=== PATIENT | male | born 1980 | race Hispanic/Latino ===

== ENCOUNTER 2018-07-10 12:28 | Emergency (ER) | payer OTHER, MEDICAID, SELFPAY ==
[2018-07-10 12:30] VITALS: BP 150/80; PULSE 90; RESP 14; TEMP 36.9; O2SAT 98
--- NOTE | 2018-07-10 13:20 | ED.ALLEREA ---
HPI - Allergic Reaction General Chief complaint: Allergic Reaction Stated complaint: states swelling in the throat Time Seen by Provider: 07/10/18 13:11 Source: patient Mode of arrival: ambulatory Limitations: no limitations History of Present Illness HPI narrative: 38-year-old male presents with chief complaint of some swelling in his throat that is largely resolved since this morning. He ate some crab last night questions whether not it was the trigger, however he eats crab regularly. He denies any trouble breathing, swallowing, or rash. MD complaint: allergic reaction Onset (ago): hour(s) Symptoms: rash Severity: mild Treatment prior to arrival: none Previous Allergic Reaction History: none Related Data Home Medications Medication Instructions Recorded Confirmed No Known Home Medications 07/10/18 07/10/18 Allergies Allergy/AdvReac Type Severity Reaction Status Date / Time No Known Drug Allergies Allergy Verified 07/10/18 13:27 Review of Systems Review of Systems All systems reviewed & are unremarkable except as noted in HPI and below Constitutional Denies chills, Denies fever(s), Denies lethargy and Denies weakness Eyes Denies change in vision, Denies eye discharge, Denies irritation and Denies loss of vision ENT Ears, Nose, Mouth, and Throat: Denies change in voice, Denies neck pain and Denies sore throat Cardiovascular Denies chest pain, Denies irregular heart rhythm, Denies lightheadedness, Denies palpitations, Denies dyspnea, Denies dyspnea on exertion and Denies orthopnea Respiratory Denies cough, Denies dyspnea, Denies dyspnea on exertion and Denies wheezing Gastrointestinal Gastrointestinal: Denies abdominal pain, Denies change in bowel habits, Denies diarrhea, Denies nausea and Denies vomiting Genitourinary Denies hematuria, Denies flank pain, Denies urinary incontinence and Denies urinary urgency Musculoskeletal Denies neck pain Integumentary/Breasts Denies pruritus, Denies erythema, Denies rash and Denies wounds Neurologic Denies confusion, Denies loss of vision and Denies weakness Psychiatric Denies anxiety, Denies confusion, Denies depression, Denies homicidal ideation and Denies suicidal ideation Endocrine Denies palpitations Hematologic/Lymphatic Denies easy bruising Allergic/Immunologic Denies wheezing Exam Narrative Exam Narrative: GEN: AOx3 and in mild distress EYES: Pupils are equal, round, and reactive to light and accommodation. Extraoccular muscles are intact bilaterally. There is no subconjunctival hemorrhage or exudate. ENT: minimal swelling of uvula. No tongue, lip swelling. AIrway patent CHEST: Lungs are clear to auscultation bilaterally and free of wheezes, rales, or rhonchi. Heart rate is regular rhythm, there are no murmurs, clicks, rubs, or gallops. There is no chest wall tenderness. ABD: Abdomen is soft and nontender. There is no guarding or rebound. Bowel sounds are normal in all 4 quadrants. There is no mass or organomegaly. EXT: Full painless ROM of all extremities with no loss of sensation or strength. SKIN: Warm, pink, and dry. No erythema or rash Initial Vital Signs Initial Vital Signs: Vital Signs Temperature 98.4 F 07/10/18 12:30 Pulse Rate 90 07/10/18 12:30 Respiratory Rate 14 07/10/18 12:30 Blood Pressure 150/80 H 07/10/18 12:30 Pulse Oximetry 98 07/10/18 12:30 Course Orders Ordered: Discontinued Medications Dexamethasone 20 mg/ Sodium (Chloride) 10 mls @ 40 mls/hr IV NOW ONE Stop: 07/10/18 13:20 Last Infusion: 07/10/18 13:26 Dose: 0 mls/hr Admin: 07/10/18 13:25 Dose: 40 mls/hr Vital Signs - 8 hr 07/10/18 12:30 07/10/18 13:58 Temperature 98.4 F 98.0 F Pulse Rate 90 83 Respiratory Rate 14 18 Blood Pressure 150/80 H Blood Pressure [Left Arm] 137/83 H Pulse Oximetry 98 99 Discharge Plan Departure Patient Disposition: Home, Self-Care Clinical Impression: Uvulitis Discharge Date/Time: 07/10/18 14:00 Interventions: ED Discharge Assessment Last Done: 07/10/18 14:00 Instructions: DI for Uvulitis Activity Restrictions/Additional Instructions: *You have been diagnosed with [ uvulitis, possible food allergy ] *What to do: *Take medications as directed: [id number] Benadryl and Pepcid as directed *Follow up with your primary care provider in 2-3 days, call for an appointment. Let them know you were seen in the Emergency Department and that we ask that you be seen in follow up *Return to ER if you should have any new, worsening or concerning symptoms Prescriptions: No Action No Known Home Medications RF: 0
[2018-07-10] MEDS: DEXAMETHASONE IV (13:25)
[2018-07-10] MEDS: SODIUM CHLORIDE 0.9% IV (13:25)
[2018-07-10 13:58] VITALS: BP 137/83; PULSE 83; RESP 18; TEMP 36.7; O2SAT 99
== END 2018-07-10 14:00 | disposition home or self-care (01) ==
PROVIDERS: Emergency Provider Emergency Medicine
DX: K12.2 Cellulitis and abscess of mouth (principal)
CPT/HCPCS: 99283; 99284; J1100

== ENCOUNTER 2021-04-15 01:37 | Emergency (ER) | payer OTHER, MEDICAID, SELFPAY ==
[2021-04-15] VITALS (7 sets, daily range): BP systolic 182–207; BP diastolic 98–136; PULSE 98–111; RESP 21–32; TEMP 36.8; O2SAT 95–99; BMI 42.0
--- NOTE | 2021-04-15 01:46 | ED_ITS ---
HPI - General Adult General Chief complaint: Hypertension Stated complaint: BP is high 197/121 Time Seen by Provider: 04/15/21 01:46 History of Present Illness HPI narrative: 41-year-old gentleman with history of hypertension and methamphetamine use presents after checking blood pressure tonight simply because the blood pressure cuff was available and noting that his blood pressure was significantly elevated. He notes that over the past number of months it has consistently been higher than 200 systolic leak. He has not been on blood pressure medications for number of years and does not currently have a physician. He states he has occasional headaches but also has history of suad adonis. He describes no chest pain, orthopnea, exertional dyspnea. He notes that he has gained almost 60 lb over the last year. He also notes that he continues to use methamphetamine fairly regularly. He denies nausea, vomiting, abdominal pain, diarrhea, change to bowel or bladder habits, lower extremity edema Related Data Previous Rx's Medication Instructions Recorded metoprolol succinate 50 mg PO DAILY #30 tab 04/15/21 Allergies Allergy/AdvReac Type Severity Reaction Status Date / Time No Known Drug Allergies Allergy Verified 07/10/18 13:27 Review of Systems Review of Systems Narrative: Remainder of complete review of systems is otherwise unremarkable except for that included in the HPI. Patient History Medical History Hypertension Methamphetamine use Obesity Social History Smoking Status: Current every day smoker Exam Narrative Exam Narrative: General: Obese, in no acute distress. Able to give a complete and coherent history. Well-nourished well-developed HEENT: Moist mucous membranes, normal sclera with reactive pupils, Neck: No JVD, supple Respiratory: Lungs are clear to auscultation, no wheezing no rales no rhonchi. Full and symmetrical air movement Cardiac: Mild tachycardia but otherwise Regular rate and rhythm no murmurs no bruits Abdomen: Soft, nontender, good bowel tones, no flank pain Skin: Warm and dry, no rashes Neurologic: Grossly neurologically intact with no obvious asymmetries or abnormalities Extremities: No trauma, well perfused, 1+ bilateral edema Psych: Cooperative, appropriate insight and affect Initial Vital Signs Initial Vital Signs: Vital Signs Pulse Rate 108 H 04/15/21 01:43 Respiratory Rate 21 04/15/21 01:43 Pulse Oximetry 99 04/15/21 01:43 Course Orders Ordered: ED Orders 04/15/21 01:50 Complete Blood Count AUTO DIFF Stat Comprehensive Metabolic Panel Stat 04/15/21 02:05 XR chest 1V Stat 04/15/21 02:59 Hemoglobin A1C% w Est Avg Glu Stat Discontinued Medications Metoprolol Succinate (Metoprolol Er 50 Mg Tablet) 50 mg PO NOW ONE Stop: 04/15/21 02:16 Last Admin: 04/15/21 02:26 Dose: 50 mg Documented by: GAYATHRI Vital Signs Vital signs: Vital Signs - 8 hr 04/15/21 01:43 04/15/21 01:45 04/15/21 02:00 Temperature 98.3 F Pulse Rate 108 H 111 H 98 H Respiratory Rate 21 22 24 Blood Pressure 207/136 H Pulse Oximetry 99 98 97 04/15/21 02:01 04/15/21 02:26 04/15/21 02:30 Temperature Pulse Rate 99 H 101 H 100 H Respiratory Rate 26 H 32 H Blood Pressure 182/98 H 189/98 H 185/108 H Pulse Oximetry 97 95 04/15/21 03:20 Temperature Pulse Rate Respiratory Rate Blood Pressure 185/108 H Pulse Oximetry Medical Decision Making Medical Records Medical records reviewed: Yes I reviewed the patient's medical records. Lab Data Lab results reviewed: Yes I reviewed the patient's lab results. Result diagrams: 04/15/21 01:50 04/15/21 01:50 Labs: Lab Results 04/15/21 04/15/21 Range/Units 01:50 01:50 WBC 14.5 H (4.5-11.0) X10^3/uL RBC 5.82 (4.5-5.9) X10^6/uL Hgb 14.0 (13.5-17.5) g/dL Hct 42.3 (41-53) % MCV 72.7 L (80-100) fL MCH 24.1 L (26-34) PG MCHC 33.1 (30-36) % RDW 13.9 (11.6-14.8) % Plt Count 280 (150-400) X10^3/uL Neut % (Auto) 58.0 (50-75) % Lymph % (Auto) 29.1 (25-40) % [place] % (Auto) 8.9 (3-14) % Eos % (Auto) 3.3 (2-4) % Baso % (Auto) 0.7 (0-2) % Neut # (Auto) 8400 H (6152-3344) /uL Lymph # (Auto) 4200 (7915-8518) /uL [place] # (Auto) 1300 H (0-900) /uL Eos # (Auto) 500 H (0-450) /uL Baso # (Auto) 100 (0-100) /uL Sodium 138 (137-145) mmol/L Potassium 3.5 (3.4-5.1) mmol/L Chloride 102 (98-107) mmol/L Carbon Dioxide 29 (22-32) mmol/L BUN 19 (9-20) mg/dL Creatinine 0.88 (0.66-1.25) mg/dL Estimated GFR > 60.0 (>60) mL/min BUN/Creatinine Ratio 21.6 (6-22) Glucose 213 H (70-100) mg/dL Calcium 9.4 (8.4-10.2) mg/dL Total Bilirubin 0.3 (0.2-1.3) mg/dL AST 38 (17-59) IU/L ALT 42 (<50) IU/L Alkaline Phosphatase 131 H (38-126) U/L Total Protein 7.1 (6.3-8.2) g/dL Albumin 4.1 (3.5-5.0) g/dL Globulin 3.0 (1.7-4.1) g/dL Albumin/Globulin Ratio 1.4 (1.0-2.8) Imaging Data Chest x-ray: Attestation: I personally reviewed and interpreted this imaging study as follows: My Impression: Mild cardiomegaly but no pulmonary infiltrates or interstitial edema. ECG Data Attestation: I personally reviewed and interpreted this ECG as follows: Interpretation: Sinus rhythm at a rate of 98 Normal axis, normal intervals No acute ischemic changes MDM Narrative Medical decision making narrative: 41-year-old gentleman presents with concerns for high blood pressure. He has been on both lisinopril and metoprolol in the past. Has multiple risk factors including continued methamphetamine use and 60 lb weight increase, sedentary lifestyle and he stopped all of his medications. He has not seen a doctor in a number of years. Elevated blood sugar today also suggests a diagnosis of diabetes that has not yet been officially made. At this point he is interested in starting blood pressure medications. This history of methamphetamine use and migraines I have chosen to restart his metoprolol. We have gone over lifestyle changes including stopping his methamphetamine and finding a primary care physician. Will also share the elevated blood sugar reading and concern for diabetes. At this point he has no sign of acute stroke, acute coronary syndrome no acute organ dysfunction and he is safe for home discharge Discharge Plan Departure Patient Disposition: Home Clinical Impression: Methamphetamine use Hypertension Qualifiers: Hypertension type: essential hypertension Qualified Code(s): I10 - Essential (primary) hypertension Obesity Qualifiers: Obesity type: due to excess calories Instructions: DI for High Blood Pressure Activity Restrictions/Additional Instructions: Thank you for coming into Your blood pressure is significantly elevated. There are multiple reasons that are contributing to this. Continuing to use methamphetamine will continue to destroy your heart and cause high blood pressure. The recent 60 lb that you have gained certainly adds to your blood pressure. Making sure that you are active makes of big difference in cont rolling blood pressure. Walking for as little as 20 minutes daily can sometimes be the difference between 1 blood pressure medication or 2. Workup in the ER is reassuring today. Your blood pressure does remain high but your blood work looks good and your EKG does not suggest heart attack and your chest x-ray is unremarkable. I am going to suggest that we restart your metoprolol at 50 mg once a day. Please keep track of your blood pressures, keeping a list will be helpful for your new doctor deciding which medications are working best for you. An additional finding on your blood work was an elevated blood sugar suggesting that you may be developing diabetes. This will need to be further evaluated by your new physician. You do need to reestablish care with a primary care physician. Please call our [facility] health natural resource economist at [phone] to find a doctor for you. Prescriptions: New metoprolol succinate 50 mg tablet extended release 24 hr 50 mg PO DAILY Qty: 30 RF: 3
--- NOTE | 2021-04-15 02:05 | DI.RAD.S_ITS ---
PROCEDURE: XR CHEST 1V INDICATIONS: hypertension TECHNIQUE: One view of the chest was acquired. COMPARISON: [facility], , CHEST 2 VIEW, 11/06/2015, 18:28. FINDINGS: Surgical changes and devices: None. Lungs and pleura: Lungs are clear. No pleural effusions or pneumothorax. Mediastinum: Mediastinal contours appear normal. Heart size is normal. Bones and chest wall: No suspicious bony lesions. Overlying soft tissues appear unremarkable. IMPRESSION: No acute cardiopulmonary disease process. Dictated by: Anna Ahumada MD, PhD on 04/15/2021 at 9:09 Approved by: Anna Ahumada MD, PhD on 04/15/2021 at 9:09
[2021-04-15 02:10] LABS: Add Manual Diff / Slide Review NO; Basophils Absolute Auto 100 /uL (0-100); Basophils Percent Auto 0.7 % (0-2); Eosinophils Absolute Auto 500 /uL (0-450); Eosinophils Percent Auto 3.3 % (2-4); Hematocrit 42.3 % (41-53); Lymphocytes Absolute Auto 4200 /uL (1100-4500); Lymphocytes Percent Auto 29.1 % (25-40); Mean Corpuscular HGB Conc 33.1 % (30-36); Mean Corpuscular Hemoglobin 24.1 PG (26-34); Mean Corpuscular Volume 72.7 fL (80-100); Monocytes Absolute Auto 1300 /uL (0-900); Monocytes Percent Auto 8.9 % (3-14); Neutrophils Absolute Auto 8400 /uL (1500-7000); Platelet Count 280 X10^3/uL (150-400); Red Blood Cell Count 5.82 X10^6/uL (4.5-5.9); Red Cell Distribution Width 13.9 % (11.6-14.8); White Blood Cell Count 14.5 X10^3/uL (4.5-11.0)
[2021-04-15 02:18] LABS: Alanine Aminotransferase 42 IU/L (<50); Albumin 4.1 g/dL (3.5-5.0); Albumin Globulin Ratio 1.4 (1.0-2.8); Alkaline Phosphatase 131 U/L (38-126); Aspartate Aminotransferase 38 IU/L (17-59); BUN Creatinine Ratio 21.6 (6-22); Bilirubin Total 0.3 mg/dL (0.2-1.3); Blood Urea Nitrogen 19 mg/dL (9-20); Calcium 9.4 mg/dL (8.4-10.2); Carbon Dioxide 29 mmol/L (22-32); Chloride 102 mmol/L (98-107); Estimated Glomerular Filt Rate > 60.0 mL/min (>60); Glucose 213 mg/dL (70-100); HEMOLYSIS < 15 (0-50); Potassium 3.5 mmol/L (3.4-5.1); Sodium 138 mmol/L (137-145); Total Protein 7.1 g/dL (6.3-8.2)
[2021-04-15] MEDS: METOPROLOL ER 50 MG TABLET PO (02:26)
[2021-04-15 04:21] LABS: Hemoglobin A1C% w Est Avg Glu 9.5 % (4.0-6.0)
== END 2021-04-15 03:22 | disposition home or self-care (01) ==
PROVIDERS: Emergency Provider Emergency Medicine
DX: I10 Essential (primary) hypertension (principal); F15.10 Other stimulant abuse, uncomplicated; E66.9 Obesity, unspecified; Z68.41 Body mass index [BMI] 40.0-44.9, adult
CPT/HCPCS: 36415; 71045; 80053; 83036; 85025; 93005; 93010; 99284

== ENCOUNTER → 2021-10-10 13:17 | Outpatient (CLI) | payer OTHER, MEDICAID, SELFPAY ==
[2021-10-10 15:43] LABS: COVID19 -Nasal RAPID Negative (Negative)
== END ==
PROVIDERS: Visit Provider Nurse Practitioner Family
DX: Z20.822 Contact with and (suspected) exposure to COVID-19 (principal)
CPT/HCPCS: 87635

== ENCOUNTER 2021-10-21 10:30 | Emergency (ER) | payer OTHER, MEDICAID, SELFPAY ==
[2021-10-21] VITALS (19 sets, daily range): BP systolic 146–205; BP diastolic 73–103; PULSE 78–90; RESP 18–25; TEMP 36.7; O2SAT 95–99; BMI 41.5
--- NOTE | 2021-10-21 10:56 | DI.RAD.S_ITS ---
PROCEDURE: XR CHEST 1V INDICATIONS: Possible stroke TECHNIQUE: One view of the chest was acquired. COMPARISON: [facility], , XR CHEST 1V, 04/15/2021, 2:26. FINDINGS: Surgical changes and devices: None. Lungs and pleura: Lungs are clear. No pleural effusions or pneumothorax. Mediastinum: Mediastinal contours appear normal. Heart size is normal. Bones and chest wall: No suspicious bony lesions. Overlying soft tissues appear unremarkable. IMPRESSION: No acute process. Dictated by: Annita Daniel M.D. on 10/21/2021 at 11:20 Approved by: Annita Daniel M.D. on 10/21/2021 at 11:20
--- NOTE | 2021-10-21 10:58 | ED_ITS ---
HPI - Neuro Symptoms/Deficit General Chief Complaint: Neuro Symptoms/Deficit Stated Complaint: Left arm partial loss of control x2days Time Seen by Provider: 10/21/21 10:47 Source: patient and family Mode of arrival: Ambulatory Limitations: no limitations History of Present Illness HPI Narrative: Patient is a 41-year-old male. History of high blood pressure. No prior diagnosis of diabetes. Does have a history of methamphetamine abuse according to the prior notes here in the emergency department. Is here for evaluation of coordination issues with his left arm, potentially slurring his words and left- sided facial droop and headache. Two days ago patient had a headache. He says was on the left back portion of his head. He took nothing for it. Things seemed to improve over the next couple hours. He did notice that he was having some coordination issues with his left arm but again did not think much of it. Did not greatly affect his daily activities. Yesterday he stated that he did not notice much issues. This morning he woke up. His fiancee who is at bedside stated that he seem to have some slurring of his words and some facial droop however this seems to have resolved. He then noticed today that he had trouble putting the jean in to his car using his left hand. He also reports that he potentially had some left leg weakness but that seems to have improved as well. On Anticoagulants: No Related Data Home Medications Medication Instructions Recorded Confirmed metoprolol succinate 50 mg 50 mg PO QAM 10/21/21 10/21/21 tablet,extended release 24 hr penicillin V potassium 500 mg 500 mg PO QID 10/21/21 10/21/21 tablet Allergies Allergy/AdvReac Type Severity Reaction Status Date / Time No Known Drug Allergies Allergy Verified 10/08/21 18:26 Review of Systems Constitutional Constitutional: Denies fever(s) and Reports headache(s) Eyes Eyes: Denies change in vision ENT Ears, Nose, Mouth, and Throat: Denies vertigo, Denies dizziness, Reports headache(s) and Denies disequilibrium Cardiovascular Cardiovascular: Denies chest pain and Denies dyspnea Respiratory Respiratory: Denies dyspnea Gastrointestinal Gastrointestinal: Denies abdominal pain, Denies nausea and Denies vomiting Genitourinary Genitourinary: Denies dysuria Musculoskeletal Musculoskeletal: Reports system reviewed and no additional complaints, except as documented and Reports as per HPI Integumentary/Breasts Skin/Breast: Reports system reviewed and no additional complaints, except as documented Neurologic Neurologic: Denies vertigo, Denies dizziness, Reports headache(s), Reports lack of coordination and Denies disequilibrium Psychiatric Psychiatric: Reports system reviewed and no additional complaints, except as documented Endocrine Endocrine: Reports system reviewed and no additional complaints, except as documented Hematologic/Lymphatic On Anticoagulants: No Allergic/Immunologic Allergic/Immunologic: Reports system reviewed and no additional complaints, except as documented Patient History Medical History Hypertension Methamphetamine use Obesity Social History Smoking Status: Current every day smoker Smoking Status: Current every day smoker alcohol intake frequency: holidays/special occasions only Substance Use Type: does not use and methamphetamine Exam Initial Vital Signs Initial Vital Signs: Vital Signs Temperature 98.1 F 10/21/21 10:35 Pulse Rate 86 10/21/21 10:35 Respiratory Rate 22 10/21/21 10:35 Blood Pressure 205/103 H 10/21/21 10:35 Pulse Oximetry 99 10/21/21 10:35 Const General: cooperative, comfortable, No acute distress and No ill appearing HENMT Head: normal to inspection and normocephalic Mouth: moist mucous membranes Eyes General: appearance normal, both eyes and all related structures Pupils: PERRL EOM: EOM intact bilaterally Chest Chest: normal inspection of the chest Resp Effort & Inspection: normal respiratory effort Auscultation: clear to auscultation bilaterally and no rhonchi Cardio Rate: regular rate Rhythm: regular rhythm GI Inspection: normal to inspection Palpation: soft Skin General: no rashes or lesions noted Neuro General: patient alert, patient awake, patient oriented x3 and moves all extremities Cranial Nerves: CN's II-XI intact bilaterally Cognition: normal cognition Speech: speech normal Gait: normal gait Motor: muscle tone normal throughout Sensory Exam: no sensory deficits noted Coordination: [id number] test abnormal Extrem General: normal to inspection and capillary refill normal Psych Appearance: grossly normal and well kempt Scores GCS [place] coma scale eye opening: Spontaneous [place] coma scale verbal response: Orientated [place] coma scale motor response: Obey commands Hedy coma scale total score: 15 NIH Stroke Scale Level of Conciousness: Alert, keenly responsive Ask month/age: Answers both questions correctly. Open/close eyes, close hand: Performs both tasks correctly Best gaze horizontal: Normal Visual penn: No visual loss Facial palsy: Normal symetrical movement Left arm drift: No drift for full 10 sec Right arm drift: No drift for full 10 sec Left leg drift: No drift for full 5 sec Right leg drift: No drift for full 5 sec Limb ataxia: Present in one limb Sensory on face/arms/legs: Normal, no sensory loss Best language: No aphasia, normal Dysarthria: Normal Extinction or inattention: No abnormality Total NIH Stroke scale score: 1 Course Orders Ordered: ED Orders 10/21/21 10:50 Complete Blood Count AUTO DIFF Stat Comprehensive Metabolic Panel Stat Ethanol (ETOH) Stat Hemoglobin A1C% w Est Avg Glu Stat Ketones (Beta-Hydroxybutyrate) Stat Lipase Stat Magnesium Stat Partial Thromboplastin Time Stat Phosphorous Stat Prothrombin Time INR Stat Troponin & CK Cardiac Panel Stat 10/21/21 10:56 XR chest 1V Stat EKG-12 Lead Stat 10/21/21 10:59 MR stroke Stat 10/21/21 11:13 COVID19 - ADMIT ([facility] swab/PCR) Stat 10/21/21 12:48 COVID19 -Nasal swab/Pre-Proc Stat Urinalysis and Microscopic Stat Urine Drug Screen, Rapid Stat Sodium Chloride (Normal Saline 0.9%) 1,000 mls @ 125 mls/hr IV CONT ALCON Last Admin: 10/21/21 11:07 Dose: 125 mls/hr Documented by: NIYA Nicardipine HCl 25 mg/ Sodium (Chloride) 250 mls @ 50 mls/hr IV TITRATE ALCON; Protocol Last Admin: 10/21/21 13:49 Dose: 5 mg/hr, 50 mls/hr Documented by: BERNABE Discontinued Medications Insulin Human Regular (Insulin Regular 100 Unit/Ml 3 Ml Vial) 10 unit IV NOW ONE Stop: 10/21/21 13:36 Last Admin: 10/21/21 13:49 Dose: 10 unit Documented by: BERNABE Cosigned by: ALTONONEFabiano Lorazepam (Lorazepam 2 Mg/Ml Inj) 1 mg IV NOW ONE Stop: 10/21/21 13:53 Last Admin: 10/21/21 14:01 Dose: 1 mg Documented by: Nicotine (Nicotine 21 Mg Patch) 21 mg TOP NOW ONE Stop: 10/21/21 13:34 Last Admin: 10/21/21 13:48 Dose: 21 mg Documented by: BERNABE Vital Signs Vital signs: Vital Signs - 8 hr 10/21/21 10:35 10/21/21 11:15 10/21/21 12:27 Temperature 98.1 F Pulse Rate 86 83 81 Respiratory Rate 22 22 18 Blood Pressure 205/103 H 160/96 H 167/92 H Pulse Oximetry 99 99 97 10/21/21 13:47 10/21/21 13:57 10/21/21 14:00 Temperature Pulse Rate 78 79 78 Respiratory Rate 24 24 23 Blood Pressure 166/102 H 171/99 H 163/91 H Pulse Oximetry 98 99 97 10/21/21 14:05 10/21/21 14:10 10/21/21 14:15 Temperature Pulse Rate 80 85 85 Respiratory Rate 22 20 24 Blood Pressure 155/85 H 156/81 H 157/80 H Pulse Oximetry 98 99 96 10/21/21 14:17 10/21/21 14:20 10/21/21 14:25 Temperature Pulse Rate 84 84 86 Respiratory Rate 24 24 24 Blood Pressure 154/73 H 159/79 H Pulse Oximetry 95 95 97 10/21/21 14:30 10/21/21 14:35 10/21/21 14:40 Temperature Pulse Rate 86 84 83 Respiratory Rate 25 H 22 22 Blood Pressure 146/76 H 152/79 H 153/81 H Pulse Oximetry 99 96 96 10/21/21 14:45 Temperature Pulse Rate 82 Respiratory Rate 23 Blood Pressure 160/82 H Pulse Oximetry 95 MDM - Neuro Symptoms/Deficit Lab Data Attestation: I reviewed the patient's lab results. Result diagrams: 10/21/21 10:50 10/21/21 10:50 Labs: Lab Results 10/21/21 10/21/21 10/21/21 Range/Units 10:50 10:50 10:50 WBC 11.9 H (4.5-11.0) X10^3/uL RBC 6.41 H (4.5-5.9) X10^6/uL Hgb 15.0 (13.5-17.5) g/dL Hct 45.5 (41-53) % MCV 70.9 L (80-100) fL MCH 23.4 L (26-34) PG MCHC 33.1 (30-36) % RDW 13.7 (11.6-14.8) % Plt Count 300 (150-400) X10^3/uL Neut % (Auto) 68.9 (50-75) % Lymph % (Auto) 21.6 L (25-40) % [place] % (Auto) 7.3 (3-14) % Eos % (Auto) 1.4 L (2-4) % Baso % (Auto) 0.8 (0-2) % Neut # (Auto) 8200 H (0676-7554) /uL Lymph # (Auto) 2600 (7781-2207) /uL [place] # (Auto) 900 (0-900) /uL Eos # (Auto) 200 (0-450) /uL Baso # (Auto) 100 (0-100) /uL PT 10.6 (10.1-12.7) SECONDS INR 1.0 (0.9-1.3) APTT 37 H (26.4-36.2) SECONDS Sodium 136 L (137-145) mmol/L Potassium 4.1 (3.4-5.1) mmol/L Chloride 98 (98-107) mmol/L Carbon Dioxide 31 (22-32) mmol/L BUN 14 (9-20) mg/dL Creatinine 0.78 (0.66-1.25) mg/dL Estimated GFR > 60.0 (>60) mL/min BUN/Creatinine Ratio 17.9 (6-22) Glucose 348 H (70-100) mg/dL Hemoglobin A1c (4.0-6.0) % Calcium 9.2 (8.4-10.2) mg/dL Phosphorus (2.5-4.5) mg/dL Magnesium (1.6-2.3) mg/dL Total Bilirubin 0.5 (0.2-1.3) mg/dL AST 30 (17-59) IU/L ALT 32 (<50) IU/L Alkaline Phosphatase 132 H (38-126) U/L Total Creatine Kinase 91 (55-170) U/L CK-MB (CK-2) TNP CK-MB (CK-2) Rel Index TNP Troponin I < 0.012 (0.01-0.034) ng/mL Total Protein 7.4 (6.3-8.2) g/dL Albumin 4.3 (3.5-5.0) g/dL Globulin 3.1 (1.7-4.1) g/dL Albumin/Globulin Ratio 1.4 (1.0-2.8) Lipase (23-300) U/L Urine Color Urine Appearance Urine pH (4.5-8.0) Ur Specific [place] (1.000-1.035) Urine Protein (Negative) Urine Glucose (UA) (Negative) g/dL Urine Ketones (NEGATIVE) Urine Occult Blood (Negative) Urine Nitrate (Negative) Urine Bilirubin (NEGATIVE) Urine Urobilinogen (0.2) E.U./dL Ur Leukocyte Esterase (NEGATIVE) Urine RBC (0-5/HPF) Urine WBC (0-5/HPF) Ur Squamous Epith Cells (0-5/HPF) Urine Bacteria (None) Ur Culture Indicated? U Opiates 300ng/mL cut (Negative) Ur Oxycodone Screen (Negative) Urine Methadone Screen (Negative) Ur Barbiturates Screen (Negative) U Tricyclic Antidepress (Negative) Ur Phencyclidine Scrn (Negative) Ur Amphetamines Screen (Negative) U Methamphetamines Scrn (Negative) Ur MDMA Scrn (Ecstasy) (Negative) U Benzodiazepines Scrn (Negative) Urine Cocaine Screen (Negative) U Marijuana (THC) Screen (Negative) Ethyl Alcohol ( - 10) mg/dL Ketones (<0.27) mmol/L SARS-CoV-2 (PCR) (Negative) 10/21/21 10/21/21 10/21/21 Range/Units 10:50 10:50 10:50 WBC (4.5-11.0) X10^3/uL RBC (4.5-5.9) X10^6/uL Hgb (13.5-17.5) g/dL Hct (41-53) % MCV (80-100) fL MCH (26-34) PG MCHC (30-36) % RDW (11.6-14.8) % Plt Count (150-400) X10^3/uL Neut % (Auto) (50-75) % Lymph % (Auto) (25-40) % [place] % (Auto) (3-14) % Eos % (Auto) (2-4) % Baso % (Auto) (0-2) % Neut # (Auto) (8786-5712) /uL Lymph # (Auto) (8932-1579) /uL [place] # (Auto) (0-900) /uL Eos # (Auto) (0-450) /uL Baso # (Auto) (0-100) /uL PT (10.1-12.7) SECONDS INR (0.9-1.3) APTT (26.4-36.2) SECONDS Sodium (137-145) mmol/L Potassium (3.4-5.1) mmol/L Chloride (98-107) mmol/L Carbon Dioxide (22-32) mmol/L BUN (9-20) mg/dL Creatinine (0.66-1.25) mg/dL Estimated GFR (>60) mL/min BUN/Creatinine Ratio (6-22) Glucose (70-100) mg/dL Hemoglobin A1c 9.6 H (4.0-6.0) % Calcium (8.4-10.2) mg/dL Phosphorus 2.9 (2.5-4.5) mg/dL Magnesium 2.0 (1.6-2.3) mg/dL Total Bilirubin (0.2-1.3) mg/dL AST (17-59) IU/L ALT (<50) IU/L Alkaline Phosphatase (38-126) U/L Total Creatine Kinase (55-170) U/L CK-MB (CK-2) CK-MB (CK-2) Rel Index Troponin I (0.01-0.034) ng/mL Total Protein (6.3-8.2) g/dL Albumin (3.5-5.0) g/dL Globulin (1.7-4.1) g/dL Albumin/Globulin Ratio (1.0-2.8) Lipase 290 (23-300) U/L Urine Color Urine Appearance Urine pH (4.5-8.0) Ur Specific [place] (1.000-1.035) Urine Protein (Negative) Urine Glucose (UA) (Negative) g/dL Urine Ketones (NEGATIVE) Urine Occult Blood (Negative) Urine Nitrate (Negative) Urine Bilirubin (NEGATIVE) Urine Urobilinogen (0.2) E.U./dL Ur Leukocyte Esterase (NEGATIVE) Urine RBC (0-5/HPF) Urine WBC (0-5/HPF) Ur Squamous Epith Cells (0-5/HPF) Urine Bacteria (None) Ur Culture Indicated? U Opiates 300ng/mL cut (Negative) Ur Oxycodone Screen (Negative) Urine Methadone Screen (Negative) Ur Barbiturates Screen (Negative) U Tricyclic Antidepress (Negative) Ur Phencyclidine Scrn (Negative) Ur Amphetamines Screen (Negative) U Methamphetamines Scrn (Negative) Ur MDMA Scrn (Ecstasy) (Negative) U Benzodiazepines Scrn (Negative) Urine Cocaine Screen (Negative) U Marijuana (THC) Screen (Negative) Ethyl Alcohol < 10 ( - 10) mg/dL Ketones 0.09 (<0.27) mmol/L SARS-CoV-2 (PCR) (Negative) 10/21/21 10/21/21 10/21/21 Range/Units 12:48 12:48 12:48 WBC (4.5-11.0) X10^3/uL RBC (4.5-5.9) X10^6/uL Hgb (13.5-17.5) g/dL Hct (41-53) % MCV (80-100) fL MCH (26-34) PG MCHC (30-36) % RDW (11.6-14.8) % Plt Count (150-400) X10^3/uL Neut % (Auto) (50-75) % Lymph % (Auto) (25-40) % [place] % (Auto) (3-14) % Eos % (Auto) (2-4) % Baso % (Auto) (0-2) % Neut # (Auto) (1802-1097) /uL Lymph # (Auto) (4856-4472) /uL [place] # (Auto) (0-900) /uL Eos # (Auto) (0-450) /uL Baso # (Auto) (0-100) /uL PT (10.1-12.7) SECONDS INR (0.9-1.3) APTT (26.4-36.2) SECONDS Sodium (137-145) mmol/L Potassium (3.4-5.1) mmol/L Chloride (98-107) mmol/L Carbon Dioxide (22-32) mmol/L BUN (9-20) mg/dL Creatinine (0.66-1.25) mg/dL Estimated GFR (>60) mL/min BUN/Creatinine Ratio (6-22) Glucose (70-100) mg/dL Hemoglobin A1c (4.0-6.0) % Calcium (8.4-10.2) mg/dL Phosphorus (2.5-4.5) mg/dL Magnesium (1.6-2.3) mg/dL Total Bilirubin (0.2-1.3) mg/dL AST (17-59) IU/L ALT (<50) IU/L Alkaline Phosphatase (38-126) U/L Total Creatine Kinase (55-170) U/L CK-MB (CK-2) CK-MB (CK-2) Rel Index Troponin I (0.01-0.034) ng/mL Total Protein (6.3-8.2) g/dL Albumin (3.5-5.0) g/dL Globulin (1.7-4.1) g/dL Albumin/Globulin Ratio (1.0-2.8) Lipase (23-300) U/L Urine Color Yellow Urine Appearance Clear Urine pH 7.0 (4.5-8.0) Ur Specific [place] 1.010 (1.000-1.035) Urine Protein Trace H (Negative) Urine Glucose (UA) 2+ H (Negative) g/dL Urine Ketones Negative (NEGATIVE) Urine Occult Blood Negative (Negative) Urine Nitrate Negative (Negative) Urine Bilirubin Negative (NEGATIVE) Urine Urobilinogen 0.2 (0.2) E.U./dL Ur Leukocyte Esterase Negative (NEGATIVE) Urine RBC None seen (0-5/HPF) Urine WBC 1-5/hpf (0-5/HPF) Ur Squamous Epith Cells 0-1 /hpf (0-5/HPF) Urine Bacteria None seen (None) Ur Culture Indicated? Cult not indicated U Opiates 300ng/mL cut Negative (Negative) Ur Oxycodone Screen Negative (Negative) Urine Methadone Screen Negative (Negative) Ur Barbiturates Screen Negative (Negative) U Tricyclic Antidepress Negative (Negative) Ur Phencyclidine Scrn Negative (Negative) Ur Amphetamines Screen Negative (Negative) U Methamphetamines Scrn Positive H (Negative) Ur MDMA Scrn (Ecstasy) Negative (Negative) U Benzodiazepines Scrn Negative (Negative) Urine Cocaine Screen Negative (Negative) U Marijuana (THC) Screen Negative (Negative) Ethyl Alcohol ( - 10) mg/dL Ketones (<0.27) mmol/L SARS-CoV-2 (PCR) Negative (Negative) Point of Care Testing Glucose POC 258 Urine Dip Bedside Urine Glucose 1000 mg/dl Bedside Urine Bilirubin - Negative Bedside Urine Ketone - Negative Urine Specific [place] 1.015 Bedside Urine Occult Blood - Negative Bedside Urine pH 6.5 Bedside Urine Protein +/- 15 Bedside Urine Urobilinogen - Negative Bedside Urine Nitrite - Negative Bedside Urine Leukocytes - Negative Esterase Imaging Data Chest x-ray: Radiologist's Impression: [address] [address] XRay Report Signed Patient: Keven Carver MR#: [id number] : 1980 Acct:[id number] Age/Sex: 41 / M Date of Service: 10/21/21 Loc: ED Accession Number: [id number] ?? Procedure: XR chest 1V Ordering Provider: Bowen Hernandes D.O. PROCEDURE:? XR CHEST 1V ? INDICATIONS:? Possible stroke ? TECHNIQUE:? One view of the chest was acquired.? ? COMPARISON:? [facility], , XR CHEST 1V, 04/15/2021, 2:26. ? FINDINGS:? ? Surgical changes and devices:? None.? ? Lungs and pleura:? Lungs are clear.? No pleural effusions or pneumothorax.? ? Mediastinum:? Mediastinal contours appear normal.? Heart size is normal.? ? Bones and chest wall:? No suspicious bony lesions.? Overlying soft tissues a ppear unremarkable.? ? IMPRESSION:? No acute process. ? ? Dictated by: Annita Daniel M.D. on 10/21/2021 at 11:20 ? ? Approved by: Annita Daniel M.D. on 10/21/2021 at 11:20?? Brain MRI: Radiologist's Impression: [address] [address] Magnetic Resonance Report Signed Patient: Keven Carver MR#: [id number] : 1980 Acct:[id number] Age/Sex: 41 / M Date of Service: 10/21/21 Loc: ED Accession Number: [id number] ?? Procedure: MR stroke Ordering Provider: Bowen Hernandes D.O. PROCEDURE:? MR STROKE Pre- and post-contrast brain MRI, non-contrast brain MR angiogram, pre- and postcontrast neck MR angiogram ? INDICATIONS:? And neurologic deficit ? TECHNIQUE:? Brain:? Noncontrast axial T1 spin echo, axial T2 fast spin echo, sagittal and axial FLAIR, coronal T2 fast spin echo, axial gradient echo, axial diffusion and ADC through the brain.? After the administration of contrast, axial 3D VIBE of the cranial vasculature and brain.? Brain MRA:? Non-contrast 3-D time of flight MR angiogram, with multiple dqmgkqd-wsjibdasc-lqekryagqb (MIP) reformats performed.? Neck MRA:? Axial and sagittal TruFISP through the neck.? Coronal dynamic MR angiogram during administration of contrast in the arterial and venous phases, with 3-dimenstional xqkkmgo-fubcobkxl-vizuwvqmfl (MIP) reformats constructed from subtraction images.? ? COMPARISON:? None. ? FINDINGS:? Image quality:? Excellent.? ? BRAIN:? CSF spaces:? Ventricles are normal in size and shape.? Basal cisterns are patent.? No extra-axial fluid collections.? Brain:? Focal 1 cm restricted diffusion and gradient signal drop noted in the swati, right of midline.? Smaller 2 mm focal restricted diffusion noted in the left aspect of the swati.? No significant mass effect.? [place]-white matter interface is normal.? No abnormal intracranial enhancement.? Skull and face:? Calvarial marrow signal is normal.? Orbits appear normal.? Sinuses:? Sinuses and mastoids are clear.? ? BRAIN MR ANGIOGRAM:? Anterior circulation:? Intracranial internal carotid arteries are normal in size and enhancement.? The flow within the paired anterior cerebral arteries is normal and symmetric.? Flow related artifact noted in the right M2 MCA particularly on the 3D models.? The anterior communicating artery is seen.? No stenoses, occlusions, or aneurysms.? Posterior circulation:? The visualized portions of the vertebral arteries demonstrate normal caliber, and join to form a normal appearing basilar artery.? The flow within the posterior cerebral arteries is normal and symmetric.? No stenoses, occlusions, or aneurysms.? ? NECK MR ANGIOGRAM:? Carotids:? Great vessels demonstrate a conventional anatomy as they arise from the aortic arch.? The origins of the common carotid arteries appear patent.? The calibers and courses of both common carotid arteries are normal.? The bifurcation regions appear normal bilaterally.? The internal carotid arteries demonstrate normal course and caliber. ? Posterior circulation:? The origins of the vertebral arteries appear patent.? More superior portions of both vertebral arteries demonstrate normal course and caliber, and join to form a normal appearing basilar artery.? Miscellaneous:? Subclavian arteries appear patent.? Pre-contrast images through the neck show no soft tissue abnormalities.? ? IMPRESSION:? ? 1. Focal 1 cm hemorrhagic infarct in the swati to the right of midline.? Smaller 2 mm lacunar infarct without hemorrhage noted to the left of midline.? No mass effect or midline shift. ? 2. No evidence of large vessel occlusion, aneurysm or vascular malformation.? Flow related artifact noted in the right M2 MCA.? ? ? Note:? Critical results were discussed with Dr. Hernandes at 11:15 AM [place] time on 10/21/21 ? Approved by: Deandre Walsh M.D. on 10/21/2021 at 11:25? ECG Data Attestation: I personally reviewed and interpreted this ECG as follows: Prior ECG tracings: available for review Interpretation: Sinus rhythm Ventricular rate 82 Normal axis Normal QRS Normal QTC No ST T wave changes MDM Narrative Medical decision making narrative: Patient's symptoms started 2 days ago. Has NIH score of 1 and that was because he had difficulty with finger to nose using his left hand. No other focal neuro deficits. His fiancee at bedside states that his speech is back to normal. Our only CT scanner is undergoing maintenance so a MRI was ordered. Resulting showing a hemorrhagic stroke in the swati. Patient's blood pressure did improve somewhat without intervention however systolic did remain greater than 160. I did discuss the case with with neurology at [facility]. He recommended controlling blood sugar, keeping systolic blood pressure less than 160, and transferring to our review emergency department for further evaluation treatment. I did discuss this with the patient and his who is at bedside. Patient started on a nicardipine drip. Was given insulin IV. He expressed understanding and agreement. Critical Care Time Critical Care Time Critical Care Time: Yes Total Critical Care Time: 45 Attestation: The high probability of a clinically significant, sudden or life threatening deterioration of the neurologic system(s) required my full and direct attention, intervention and personal management. The aggregate critical care time was [45 minutes. This time is in addition to time spent performing reported procedures but includes the following: [x] Data Review and interpretation [x] Patient assessment and monitoring of vital signs [x] Documentation [x] Medication orders and management Discharge Plan Departure Patient Disposition: Xfer Acute Care Hospital Prescriptions: No Action penicillin V potassium 500 mg tablet 500 mg PO QID 0RF Label Comments: tooth abcess metoprolol succinate 50 mg tablet extended release 24 hr 50 mg PO QAM 0RF
--- NOTE | 2021-10-21 10:59 | DI.MRI.S_ITS ---
PROCEDURE: MR STROKE Pre- and post-contrast brain MRI, non-contrast brain MR angiogram, pre- and postcontrast neck MR angiogram INDICATIONS: And neurologic deficit TECHNIQUE: Brain: Noncontrast axial T1 spin echo, axial T2 fast spin echo, sagittal and axial FLAIR, coronal T2 fast spin echo, axial gradient echo, axial diffusion and ADC through the brain. After the administration of contrast, axial 3D VIBE of the cranial vasculature and brain. Brain MRA: Non-contrast 3-D time of flight MR angiogram, with multiple tgvsgig-obtetrudp-vxwwolrrgs (MIP) reformats performed. Neck MRA: Axial and sagittal TruFISP through the neck. Coronal dynamic MR angiogram during administration of contrast in the arterial and venous phases, with 3-dimenstional krzvopd-ntdnsynua-bgsnrvmxzn (MIP) reformats constructed from subtraction images. COMPARISON: None. FINDINGS: Image quality: Excellent. BRAIN: CSF spaces: Ventricles are normal in size and shape. Basal cisterns are patent. No extra-axial fluid collections. Brain: Focal 1 cm restricted diffusion and gradient signal drop noted in the swati, right of midline. Smaller 2 mm focal restricted diffusion noted in the left aspect of the swati. No significant mass effect. [place]-white matter interface is normal. No abnormal intracranial enhancement. Skull and face: Calvarial marrow signal is normal. Orbits appear normal. Sinuses: Sinuses and mastoids are clear. BRAIN MR ANGIOGRAM: Anterior circulation: Intracranial internal carotid arteries are normal in size and enhancement. The flow within the paired anterior cerebral arteries is normal and symmetric. Flow related artifact noted in the right M2 MCA particularly on the 3D models. The anterior communicating artery is seen. No stenoses, occlusions, or aneurysms. Posterior circulation: The visualized portions of the vertebral arteries demonstrate normal caliber, and join to form a normal appearing basilar artery. The flow within the posterior cerebral arteries is normal and symmetric. No stenoses, occlusions, or aneurysms. NECK MR ANGIOGRAM: Carotids: Great vessels demonstrate a conventional anatomy as they arise from the aortic arch. The origins of the common carotid arteries appear patent. The calibers and courses of both common carotid arteries are normal. The bifurcation regions appear normal bilaterally. The internal carotid arteries demonstrate normal course and caliber. Posterior circulation: The origins of the vertebral arteries appear patent. More superior portions of both vertebral arteries demonstrate normal course and caliber, and join to form a normal appearing basilar artery. Miscellaneous: Subclavian arteries appear patent. Pre-contrast images through the neck show no soft tissue abnormalities. IMPRESSION: 1. 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 Smaller 2 mm lacunar infarct without hemorrhage noted to the left of midline. No mass effect or midline shift. 2. No evidence of large vessel occlusion, aneurysm or vascular malformation. Flow related artifact noted in the right M2 MCA. Note: Critical results were discussed with Dr. Hernandes at 11:15 AM [place] time on 10/21/21 Approved by: Deandre Walsh M.D. on 10/21/2021 at 11:25
[2021-10-21 11:06] LABS: Add Manual Diff / Slide Review NO; Basophils Absolute Auto 100 /uL (0-100); Basophils Percent Auto 0.8 % (0-2); Eosinophils Absolute Auto 200 /uL (0-450); Eosinophils Percent Auto 1.4 % (2-4); Hematocrit 45.5 % (41-53); Lymphocytes Absolute Auto 2600 /uL (1100-4500); Lymphocytes Percent Auto 21.6 % (25-40); Mean Corpuscular HGB Conc 33.1 % (30-36); Mean Corpuscular Hemoglobin 23.4 PG (26-34); Mean Corpuscular Volume 70.9 fL (80-100); Monocytes Absolute Auto 900 /uL (0-900); Monocytes Percent Auto 7.3 % (3-14); Neutrophils Absolute Auto 8200 /uL (1500-7000); Neutrophils Percent Auto 68.9 % (50-75); Platelet Count 300 X10^3/uL (150-400); Red Blood Cell Count 6.41 X10^6/uL (4.5-5.9); Red Cell Distribution Width 13.7 % (11.6-14.8); White Blood Cell Count 11.9 X10^3/uL (4.5-11.0)
[2021-10-21] MEDS: SODIUM CHLORIDE 0.9% 1,000 ML 125 ML IV (11:07)
[2021-10-21 11:08] LABS: Prothrombin Time 10.6 SECONDS (10.1-12.7)
[2021-10-21 11:10] LABS: PTT Partial Thromboplastin Tim 37 SECONDS (26.4-36.2)
[2021-10-21 11:18] LABS: Ethanol (ETOH) < 10 mg/dL; Lipase 290 U/L (23-300)
[2021-10-21 11:19] LABS: Alanine Aminotransferase 32 IU/L (<50); Albumin 4.3 g/dL (3.5-5.0); Albumin Globulin Ratio 1.4 (1.0-2.8); Alkaline Phosphatase 132 U/L (38-126); Aspartate Aminotransferase 30 IU/L (17-59); BUN Creatinine Ratio 17.9 (6-22); Bilirubin Total 0.5 mg/dL (0.2-1.3); Blood Urea Nitrogen 14 mg/dL (9-20); Calcium 9.2 mg/dL (8.4-10.2); Carbon Dioxide 31 mmol/L (22-32); Chloride 98 mmol/L (98-107); Creatine Kinase 91 U/L (55-170); Estimated Glomerular Filt Rate > 60.0 mL/min (>60); Globulin 3.1 g/dL (1.7-4.1); Glucose 348 mg/dL (70-100); HEMOLYSIS < 15 (0-50); Phosphorous 2.9 mg/dL (2.5-4.5); Potassium 4.1 mmol/L (3.4-5.1); Sodium 136 mmol/L (137-145); Total Protein 7.4 g/dL (6.3-8.2)
[2021-10-21 11:21] LABS: Ketones (Beta-Hydroxybutyrate) 0.09 mmol/L (<0.27)
[2021-10-21 11:30] LABS: Troponin I < 0.012 ng/mL (0.01-0.034)
[2021-10-21 11:39] LABS: Hemoglobin A1C% w Est Avg Glu 9.6 % (4.0-6.0)
[2021-10-21 12:54] LABS: Appearance Urine UA CLEAR; Bilirubin Urine UA NEGATIVE (NEGATIVE); Color Urine UA YELLOW; Glucose Urine UA 2+ g/dL (Negative); Ketones Urine UA NEGATIVE (NEGATIVE); Leukocyte Esterase Urine UA NEGATIVE (NEGATIVE); Nitrite Urine UA NEGATIVE (Negative); Occult Blood Urine UA NEGATIVE (Negative); Protein Urine UA TRACE (Negative); Urobilinogen Urine UA 0.2 E.U./dL (0.2)
[2021-10-21 13:01] LABS: UR Morphine/Opiate cutoff 300 Negative (Negative); Ur Creatinine Normal (Normal); Ur Specific Gravity Normal (Normal); Urine Amphetamines Negative (Negative); Urine Barbiturates Negative (Negative); Urine Benzodiazepines Negative (Negative); Urine Cocaine Negative (Negative); Urine MDMA Negative (Negative); Urine Methadone Negative (Negative); Urine Methamphetamines Positive (Negative); Urine Oxycodone Negative (Negative); Urine Phencyclidine Negative (Negative); Urine Tetrahydrocannabinol Negative (Negative); Urine Tricyclic Antidepressant Negative (Negative); Urine pH Normal (Normal)
[2021-10-21 13:04] LABS: Bacteria Urine None Seen; Culture Indicated Urine Cult Not Indicated; RBC Urine None Seen (0-5/HPF); Squamous Epithelial Cell Urine 0-1 /HPF (0-5/HPF); WBC Urine 1-5/HPF (0-5/HPF)
[2021-10-21 13:06] LABS: COVID19 -Nasal RAPID Negative (Negative)
[2021-10-21] MEDS: NICOTINE 21 MG PATCH TOP (13:48)
[2021-10-21] MEDS: NICARDIPINE 25 MG in SODIUM CHLORIDE 0.9% 240 ML 50 ML IV (13:49)
[2021-10-21] MEDS: INSULIN REGULAR 100 UNIT/ML 3 ML VIAL 10 UNIT IV (13:49)
[2021-10-21] MEDS: LORazepam 2 MG/ML INJ 1 MG IV (14:01)
--- NOTE | 2021-10-21 15:12 | PC.NURSE ---
[place] [facility] [place] at 50 mls/hr.
== END 2021-10-21 15:12 | disposition short-term general hospital (02) ==
PROVIDERS: Emergency Provider Emergency Medicine
DX: I61.9 Nontraumatic intracerebral hemorrhage, unspecified (principal); R27.8 Other lack of coordination; Z20.822 Contact with and (suspected) exposure to COVID-19
CPT/HCPCS: 36415; 70548; 70553; 71045; 80053; 80305; 80320; 81001; 81003; 82009; 82550; 82962; 83036; 83690; 83735; 84100; 84484; 85025; 85610; 85730; 87635; 93005; 96365; 96375; 99285; 99291; C9803; J2060

== ENCOUNTER → 2021-12-29 14:55 | Outpatient (CLI) | payer OTHER, MEDICAID, SELFPAY ==
[2021-12-29 15:37] LABS: Alanine Aminotransferase 20 IU/L (<50); Albumin 4.5 g/dL (3.5-5.0); Albumin Globulin Ratio 1.4 (1.0-2.8); Alkaline Phosphatase 82 U/L (38-126); Aspartate Aminotransferase 25 IU/L (17-59); BUN Creatinine Ratio 23.9 (6-22); Bilirubin Total 0.7 mg/dL (0.2-1.3); Blood Urea Nitrogen 22 mg/dL (9-20); Calcium 9.4 mg/dL (8.4-10.2); Carbon Dioxide 29 mmol/L (22-32); Chloride 104 mmol/L (98-107); Estimated Glomerular Filt Rate > 60.0 mL/min (>60); Globulin 3.3 g/dL (1.7-4.1); Glucose 112 mg/dL (70-100); HEMOLYSIS < 15 (0-50); Potassium 4.1 mmol/L (3.4-5.1); Sodium 140 mmol/L (137-145); Total Protein 7.8 g/dL (6.3-8.2)
[2021-12-29 16:22] LABS: Hemoglobin A1C% w Est Avg Glu 7.8 % (4.0-6.0)
== END ==
PROVIDERS: PCP Internal Medicine; Referring Provider Internal Medicine; Visit Provider Internal Medicine
DX: E11.9 Type 2 diabetes mellitus without complications (principal); I10 Essential (primary) hypertension; Z79.4 Long term (current) use of insulin
CPT/HCPCS: 36415; 80053; 83036

== ENCOUNTER → 2022-05-20 15:25 | Outpatient (CLI) | payer OTHER, MEDICAID, SELFPAY ==
[2022-05-20 16:59] LABS: BUN Creatinine Ratio 23.9 (6-22); Blood Urea Nitrogen 21 mg/dL (9-20); Calcium 8.8 mg/dL (8.4-10.2); Carbon Dioxide 26 mmol/L (22-32); Chloride 104 mmol/L (98-107); Estimated Glomerular Filt Rate > 60 mL/min (>60); Glucose 162 mg/dL (70-100); HEMOLYSIS < 15 (0-50); Sodium 140 mmol/L (137-145)
[2022-05-20 18:49] LABS: Creatinine Urine Random 148.4 mg/dL
[2022-05-20 18:54] LABS: Microalbumi Creatinin Ratio Ur 29.6 ug/mg CR (<30); Microalbumin Urine Random 4.4 mg/dL (0-1.6)
[2022-05-20 19:00] LABS: Hemoglobin A1C% w Est Avg Glu 6.8 % (4.0-6.0)
== END ==
PROVIDERS: PCP Internal Medicine; Referring Provider Internal Medicine; Visit Provider Internal Medicine
DX: E11.9 Type 2 diabetes mellitus without complications (principal); Z79.4 Long term (current) use of insulin; E78.2 Mixed hyperlipidemia
CPT/HCPCS: 36415; 80048; 82043; 82570; 83036

== ENCOUNTER → 2023-01-06 16:09 | Outpatient (CLI) | payer OTHER, MEDICAID, SELFPAY ==
[2023-01-06 17:35] LABS: HEMOLYSIS < 15 (0-50)
[2023-01-06 17:36] LABS: BUN Creatinine Ratio 21.9 (6-22); Blood Urea Nitrogen 21 mg/dL (9-20); Calcium 8.7 mg/dL (8.4-10.2); Carbon Dioxide 26 mmol/L (22-32); Chloride 104 mmol/L (98-107); Estimated Glomerular Filt Rate > 60 mL/min (>60); Glucose 120 mg/dL (70-100); Sodium 140 mmol/L (137-145)
[2023-01-06 17:41] LABS: Hemoglobin A1C% w Est Avg Glu 7.2 % (4.0-6.0)
== END ==
PROVIDERS: PCP Internal Medicine; Referring Provider Internal Medicine; Visit Provider Internal Medicine
DX: E11.9 Type 2 diabetes mellitus without complications (principal); E78.2 Mixed hyperlipidemia; Z79.4 Long term (current) use of insulin
CPT/HCPCS: 36415; 80048; 83036

== ENCOUNTER → 2025-05-09 09:24 | Outpatient (CLI) | payer OTHER, SELFPAY ==
[2025-05-09 10:07] LABS: Hemoglobin A1C% w Est Avg Glu 8.4 % (4.0-6.0)
[2025-05-09 10:40] LABS: Alanine Aminotransferase 42 IU/L (<50); Albumin 4.2 g/dL (3.5-5.0); Albumin Globulin Ratio 1.5 (1.0-2.8); Alkaline Phosphatase 108 U/L (38-126); Aspartate Aminotransferase 45 IU/L (17-59); BUN Creatinine Ratio 18.4 (6-22); Bilirubin Total 0.8 mg/dL (0.2-1.3); Blood Urea Nitrogen 18 mg/dL (9-20); Calcium 8.8 mg/dL (8.4-10.2); Carbon Dioxide 25 mmol/L (22-32); Chloride 104 mmol/L (98-107); Estimated Glomerular Filt Rate > 60 mL/min (>60); Globulin 2.8 g/dL (1.7-4.1); Glucose 187 mg/dL (70-99); HEMOLYSIS < 15 (0-50); Potassium 3.9 mmol/L (3.4-5.1); Sodium 137 mmol/L (137-145)
== END ==
PROVIDERS: PCP Internal Medicine; Referring Provider Internal Medicine; Visit Provider Internal Medicine
DX: E78.2 Mixed hyperlipidemia (principal); E11.9 Type 2 diabetes mellitus without complications; I10 Essential (primary) hypertension; Z79.4 Long term (current) use of insulin
CPT/HCPCS: 36415; 80053; 83036

== ENCOUNTER → 2025-08-22 13:05 | Outpatient (CLI) | payer OTHER, SELFPAY ==
[2025-08-22 14:09] LABS: Hemoglobin A1C% w Est Avg Glu 7.9 % (4.0-6.0)
[2025-08-22 14:12] LABS: Alanine Aminotransferase 22 IU/L (<50); Albumin 4.5 g/dL (3.5-5.0); Albumin Globulin Ratio 1.5 (1.0-2.8); Alkaline Phosphatase 90 U/L (38-126); Blood Urea Nitrogen 20 mg/dL (9-20); Calcium 8.9 mg/dL (8.4-10.2); Carbon Dioxide 28 mmol/L (22-32); Chloride 100 mmol/L (98-107); Cholesterol 118 mg/dL (140-199); Estimated Glomerular Filt Rate > 60 mL/min (>60); Globulin 3.0 g/dL (1.7-4.1); Glucose 146 mg/dL (70-99); HDL Cholesterol 31 mg/dL (40-60); HEMOLYSIS < 15 (0-50); Potassium 4.2 mmol/L (3.4-5.1); Sodium 137 mmol/L (137-145); Total Protein 7.5 g/dL (6.3-8.2); Triglycerides 94 mg/dL (35-150)
[2025-08-22 15:23] LABS: Microalbumi Creatinin Ratio Ur 34.0 ug/mg CR (<30)
== END ==
LOC: LAB 13:06
PROVIDERS: PCP Internal Medicine; Referring Provider Internal Medicine; Visit Provider Internal Medicine
DX: E11.9 Type 2 diabetes mellitus without complications (principal); Z86.73 Personal history of transient ischemic attack (TIA), and cerebral infarction without residual deficits; E78.2 Mixed hyperlipidemia; Z79.4 Long term (current) use of insulin; I10 Essential (primary) hypertension
CPT/HCPCS: 36415; 80053; 80061; 82043; 82570; 83036